=== PATIENT | male | born 1975 | race Caucasian/White ===

== ENCOUNTER 2017-05-15 09:19 | Emergency (ER) | payer MEDICAID ==
[~2017-05-15] VITALS: Ht 167.6 cm; Wt 65.8 kg
[~2017-05-15 09:19] MED LIST: MIRT30TA OR; RISPERIDOL; SERT-138 PO
[2017-05-15 09:36] VITALS: BP 130/72
[2017-05-15] MEDS ORDERED: OLANZapine 5 MG TAB PO ONE (10:15)
== END 2017-05-15 12:31 | disposition left against medical advice (07) ==
LOC: EDUNIT# 09:19 → EDBD 09:19 → ER 09:19
DX: R45.851 Suicidal ideations (principal); F41.9 Anxiety disorder, unspecified; F31.9 Bipolar disorder, unspecified; F10.120 Alcohol abuse with intoxication, uncomplicated; F17.210 Nicotine dependence, cigarettes, uncomplicated; F12.10 Cannabis abuse, uncomplicated; F15.10 Other stimulant abuse, uncomplicated; Z59.0 Homelessness; Z53.29 Procedure and treatment not carried out because of patient's decision for other reasons

== ENCOUNTER 2017-05-23 12:16 | Emergency (ER) | payer MEDICAID ==
[~2017-05-23] VITALS: Ht 165.1 cm; Wt 65.8 kg
[2017-05-23 12:52] LABS: Basophils # (auto) 0 uL; Basophils % (auto) 0.4 % (0.0-2.0); CONDITION Y; Eosinophils # (auto) 0 uL; Eosinophils % (auto) 0.4 % (0.0-7.0); Hemoglobin 13.9 g/dL (13.5-17.5); Lymphocytes # (auto) 2.1 uL; Lymphocytes % (auto) 22.4 % (10.0-50.0); Mean Corpuscular Hemoglobin 32.2 pg (28.0-32.0); Mean Corpuscular Volume 94.8 fL (80.0-100.0); Mean Platelet Volume 7.7 fL (7.4-10.4); Monocytes # (auto) 0.5 uL; Monocytes % (auto) 5.3 % (0.0-12.0); Neutrophils # (auto) 6.7 uL; Neutrophils % (auto) 71.5 % (37.0-80.0); Platelet Count (auto) 328 10^3/uL (140-450); Red Cell Distribution Width 13.5 % (11.6-16.0); White Blood Cell 9.4 10^3/uL (4.4-10.8)
[2017-05-23] MEDS ORDERED: RISP2TAB62 PO (13:06)
[2017-05-23 13:07] LABS: Anion Gap 8 (5-15); BUN/Creatinine Ratio 5.8; Blood Urea Nitrogen 5 mg/dL (7-18); Calcium 8.2 mg/dL (8.5-10.1); Carbon Dioxide 24 mmol/L (21-32); Chloride 110 mmol/L (98-107); GFR African American 127 mL/min; GFR Non-African American 105 mL/min; Glucose 100 mg/dL (74-106); Potassium 3.2 mmol/L (3.5-5.1); Sodium 142 mmol/L (136-145)
[2017-05-23 13:09] LABS: Salicylate 2.3 mg/dL (2.8-20.0)
[2017-05-23 13:13] LABS: Acetaminophen < 2.0 ug/mL (10-30)
[2017-05-23] MEDS ORDERED: POTASSIUM CHL 20 Meq TABLET PO ONE (14:15)
[2017-05-23] MEDS ORDERED: LORazepam 0.5 MG TAB PO ONE (18:15)
[2017-05-24] MEDS ORDERED: risperiDONE 1 MG TAB PO ONE (12:05)
[2017-05-24] MEDS ORDERED: MIRTAZAPINE 30 MG TAB PO ONE (12:05)
[2017-05-24] MEDS ORDERED: risperiDONE 1 MG TAB PO SCH (12:15)
[2017-05-24] MEDS ORDERED: MIRTAZAPINE 30 MG TAB PO SCH (12:15)
[2017-05-24 12:25] VITALS: BP 110/89
== END 2017-05-24 14:10 | disposition home or self-care (01) ==
LOC: EDBD 12:16 → ER 12:19
DX: R45.851 Suicidal ideations (principal); F20.9 Schizophrenia, unspecified; F41.9 Anxiety disorder, unspecified; I10 Essential (primary) hypertension
CPT/HCPCS: 36415; 80048; 80307; 80320; 80329; 85025

== ENCOUNTER 2017-05-28 20:31 | Observation (INO) | payer MEDICAID ==
[~2017-05-28] VITALS: Ht 165.1 cm; Wt 65.8 kg
[~2017-05-28 20:31] MED LIST changes: +RISP2TAB62 PO
[2017-05-28 21:01] LABS: Basophils # (auto) 0.1 uL; Basophils % (auto) 0.4 % (0.0-2.0); CONDITION Y; Eosinophils # (auto) 0.1 uL; Eosinophils % (auto) 0.8 % (0.0-7.0); Hematocrit 42.7 % (41.0-53.0); Hemoglobin 14.5 g/dL (13.5-17.5); Lymphocytes # (auto) 2.7 uL; Lymphocytes % (auto) 24.1 % (10.0-50.0); Mean Corpuscular Hemoglobin 31.6 pg (28.0-32.0); Mean Corpuscular Hgb Conc. 33.9 g/dL (32.0-36.0); Mean Corpuscular Volume 93.2 fL (80.0-100.0); Mean Platelet Volume 7.8 fL (7.4-10.4); Monocytes # (auto) 0.6 uL; Monocytes % (auto) 5.5 % (0.0-12.0); Neutrophils # (auto) 7.9 uL; Neutrophils % (auto) 69.2 % (37.0-80.0); Platelet Count (auto) 353 10^3/uL (140-450); Red Cell Distribution Width 13.3 % (11.6-16.0); White Blood Cell 11.4 10^3/uL (4.4-10.8)
[2017-05-28 21:26] LABS: Acetaminophen < 2.0 ug/mL (10-30); Salicylate 1.7 mg/dL (2.8-20.0)
[2017-05-28 21:32] LABS: Albumin 3.8 g/dL (3.4-5.0); Alkaline Phosphatase 69 U/L (45-117); Anion Gap 8 (5-15); Aspartate Aminotransferase 23 U/L (15-37); BUN/Creatinine Ratio 15.7; Bilirubin, Total 0.3 mg/dL (0.2-1.0); Blood Urea Nitrogen 14 mg/dL (7-18); Calcium 8.6 mg/dL (8.5-10.1); Carbon Dioxide 25 mmol/L (21-32); Chloride 105 mmol/L (98-107); GFR African American 122 mL/min; GFR Non-African American 101 mL/min; Glucose 91 mg/dL (74-106); Potassium 3.7 mmol/L (3.5-5.1); Sodium 138 mmol/L (136-145); Total Protein 7.3 g/dL (6.4-8.2)
[2017-05-28 21:35] LABS: Urine Bilirubin Negative (Negative); Urine Blood Negative /uL (Negative); Urine Glucose Normal (Normal); Urine Ketone Negative (Negative); Urine Nitrite Negative (Negative); Urine RBC <1 /hpf (0 - 3); Urine Urobilinogen Normal (Negative); Urine pH 6.5 (5.0-8.0)
[2017-05-28 21:36] LABS: Urine Color Straw (Yellow)
[2017-05-29] MEDS ORDERED: LORazepam 2MG/ML-1ML VIAL IM ONE (00:45)
[2017-05-29] MEDS ORDERED: LORazepam 0.5 MG TAB PO ONE (22:30)
[2017-05-30] MEDS: LORazepam 0.5 MG TAB PO PRN (10:46)
[2017-05-31] MEDS: LORazepam 0.5 MG TAB PO PRN ×2 (02:05→13:26)
[2017-05-31] MEDS ORDERED: LORazepam 0.5 MG TAB ONE (13:20)
[2017-05-31 19:19] VITALS: BP 114/81
[2017-06-01] MEDS ORDERED: LORazepam 0.5 MG TAB ONE (01:13)
[2017-06-01] MEDS: LORazepam 0.5 MG TAB PO PRN (01:21)
== END 2017-06-01 09:50 | disposition home or self-care (01) | DRG 756 ==
LOC: ER 20:34 → OVERFLOW 22:02 → ER 06-01 08:40
PROVIDERS: ADMIT Emergency Medicine; ATTEND Emergency Medicine
DX: R45.851 Suicidal ideations (principal); F20.9 Schizophrenia, unspecified; I10 Essential (primary) hypertension; E11.9 Type 2 diabetes mellitus without complications; F31.9 Bipolar disorder, unspecified; F41.9 Anxiety disorder, unspecified; F17.210 Nicotine dependence, cigarettes, uncomplicated; Z59.0 Homelessness
CPT/HCPCS: 36415; 80053; 80307; 80320; 80329; 81001; 84484; 85025; 93005; 96372; 99285; G0378; J2060

== ENCOUNTER 2017-09-30 18:37 | Emergency (ER) | payer MEDICAID ==
[~2017-09-30] VITALS: Ht 177.8 cm; Wt 68.0 kg
[2017-09-30 19:18] LABS: Basophils # (auto) 0.1 uL; Basophils % (auto) 0.7 % (0.0-2.0); Eosinophils # (auto) 0.2 uL; Eosinophils % (auto) 1.5 % (0.0-7.0); Hematocrit 41.3 % (41.0-53.0); Hemoglobin 14.3 g/dL (13.5-17.5); Lymphocytes # (auto) 3.2 uL; Lymphocytes % (auto) 32.3 % (10.0-50.0); Mean Corpuscular Hemoglobin 32.2 pg (28.0-32.0); Mean Corpuscular Hgb Conc. 34.5 g/dL (32.0-36.0); Mean Corpuscular Volume 93.2 fL (80.0-100.0); Mean Platelet Volume 7.2 fL (6.9-10.8); Monocytes # (auto) 0.5 uL; Monocytes % (auto) 5.2 % (0.0-12.0); Neutrophils % (auto) 60.3 % (37.0-80.0); Platelet Count (auto) 274 10^3/uL (140-450); Red Cell Distribution Width 12.8 % (11.8-14.3)
[2017-09-30 19:37] LABS: Albumin 3.4 g/dL (3.4-5.0); BUN/Creatinine Ratio 13.5; Calcium 8.2 mg/dL (8.5-10.1); Potassium 4.1 mmol/L (3.5-5.1)
[2017-09-30 19:39] LABS: Acetaminophen < 2.0 ug/mL (10-30); Bilirubin, Total 0.1 mg/dL (0.2-1.0); Salicylate 2.1 mg/dL (2.8-20.0); Total Protein 6.7 g/dL (6.4-8.2)
[2017-10-01 16:41] VITALS: BP 116/80
== END 2017-10-01 16:54 ==
LOC: EDUNIT# 18:37 → ER 18:37 → EDBD 18:37 → ER 10-01 16:54
DX: F41.9 Anxiety disorder, unspecified (principal); G92 Toxic encephalopathy; F10.129 Alcohol abuse with intoxication, unspecified; I10 Essential (primary) hypertension; F32.9 Major depressive disorder, single episode, unspecified; F12.10 Cannabis abuse, uncomplicated; F15.10 Other stimulant abuse, uncomplicated; F20.9 Schizophrenia, unspecified; E11.9 Type 2 diabetes mellitus without complications; F17.210 Nicotine dependence, cigarettes, uncomplicated; Z59.0 Homelessness
CPT/HCPCS: 36415; 80053; 80307; 80320; 80329; 85025

== ENCOUNTER 2017-10-12 10:54 | Emergency (ER) | payer MEDICAID ==
[~2017-10-12] VITALS: Ht 170.2 cm; Wt 68.0 kg
[2017-10-12 13:24] LABS: Basophils # (auto) 0.1 uL; Basophils % (auto) 0.7 % (0.0-2.0); Eosinophils # (auto) 0.1 uL; Eosinophils % (auto) 1.4 % (0.0-7.0); Hematocrit 42.7 % (41.0-53.0); Hemoglobin 14.6 g/dL (13.5-17.5); Lymphocytes # (auto) 1.8 uL; Mean Corpuscular Hemoglobin 32.1 pg (28.0-32.0); Mean Corpuscular Hgb Conc. 34.1 g/dL (32.0-36.0); Mean Corpuscular Volume 94.2 fL (80.0-100.0); Monocytes # (auto) 0.3 uL; Monocytes % (auto) 3.5 % (0.0-12.0); Neutrophils # (auto) 6.3 uL; Neutrophils % (auto) 73.4 % (37.0-80.0); Nucleated Red Blood Cells % 0.1 %; Platelet Count (auto) 305 10^3/uL (140-450); Red Blood Cells 4.53 10^6/uL (4.5-5.90); Red Cell Distribution Width 13.3 % (11.8-14.3); White Blood Cell 8.6 10^3/uL (4.4-10.8)
[2017-10-12 13:30] VITALS: BP 128/77
[2017-10-12 13:45] LABS: Albumin 3.7 g/dL (3.4-5.0); BUN/Creatinine Ratio 11.9; Calcium 8.4 mg/dL (8.5-10.1); Potassium 4.7 mmol/L (3.5-5.1)
[2017-10-12 13:47] LABS: Bilirubin, Total 0.2 mg/dL (0.2-1.0); Total Protein 7.1 g/dL (6.4-8.2)
[2017-10-12 13:49] LABS: Acetaminophen < 2.0 ug/mL (10-30); Salicylate 2.3 mg/dL (2.8-20.0)
== END 2017-10-12 16:28 | disposition home or self-care (01) ==
LOC: ER 10:54 → EDBD 10:54 → ER 16:28
DX: T65.92XA Toxic effect of unspecified substance, intentional self-harm, initial encounter (principal); F41.9 Anxiety disorder, unspecified; F32.9 Major depressive disorder, single episode, unspecified; I10 Essential (primary) hypertension; F20.9 Schizophrenia, unspecified; F12.10 Cannabis abuse, uncomplicated; F17.210 Nicotine dependence, cigarettes, uncomplicated; Z59.0 Homelessness; Y92.89 Other specified places as the place of occurrence of the external cause
CPT/HCPCS: 36415; 71045; 80053; 80329; 85025; 93005

== ENCOUNTER 2018-02-02 07:42 | Emergency (ER) | payer MEDICAID ==
[~2018-02-02] VITALS: Ht 165.1 cm; Wt 63.5 kg
[2018-02-02 07:48] VITALS: BP 137/88
[2018-02-02 07:55] LABS: Urine WBC None Seen /hpf (0 - 3)
[2018-02-02] MEDS ORDERED: SODIUM CHLORIDE 0.9% 1,000 ML IV ONE ×2 (08:04)
[2018-02-02 08:13] LABS: Basophils # (auto) 0.1 uL; Basophils % (auto) 0.8 % (0.0-2.0); Eosinophils # (auto) 0.1 uL; Eosinophils % (auto) 1.3 % (0.0-7.0); Hematocrit 46.7 % (41.0-53.0); Hemoglobin 15.9 g/dL (13.5-17.5); Lymphocytes # (auto) 1.6 uL; Lymphocytes % (auto) 16.6 % (10.0-50.0); Mean Corpuscular Hemoglobin 31.1 pg (28.0-32.0); Mean Corpuscular Hgb Conc. 34.2 g/dL (32.0-36.0); Mean Corpuscular Volume 91.2 fL (80.0-100.0); Monocytes # (auto) 0.5 uL; Monocytes % (auto) 4.8 % (0.0-12.0); Neutrophils # (auto) 7.5 uL; Neutrophils % (auto) 76.5 % (37.0-80.0); Nucleated Red Blood Cells % 0.1 %; Platelet Count (auto) 351 10^3/uL (140-450); Red Blood Cells 5.12 10^6/uL (4.5-5.90); Red Cell Distribution Width 13.2 % (11.8-14.3); White Blood Cell 9.9 10^3/uL (4.4-10.8)
[2018-02-02] MEDS ORDERED: LORazepam 2MG/ML-1ML VIAL IV ONE (08:15)
[2018-02-02] MEDS ORDERED: ALUM & MAG HYDROX-SIMETH LIQ(MAALOX) 30 ML PO ONE (08:15)
[2018-02-02] MEDS ORDERED: LIDOCAINE VISCOUS 2% 15ML UD PO ONE (08:15)
[2018-02-02] MEDS ORDERED: DONNATAL 5ml ORAL Elix (BELLADONNA ALK-PHENOBARB) PO ONE (08:15)
[2018-02-02 08:19] LABS: Urine Amorphous Crystal FEW /hpf (None Seen); Urine Bacteria FEW /hpf (None Seen); Urine Blood Negative /uL (Negative); Urine Mucus FEW (None Seen)
[2018-02-02 08:23] LABS: BUN/Creatinine Ratio 8.9; Calcium 9.1 mg/dL (8.5-10.1); Potassium 3.8 mmol/L (3.5-5.1)
[2018-02-02 08:25] LABS: Bilirubin, Total 0.4 mg/dL (0.2-1.0); Total Protein 7.8 g/dL (6.4-8.2)
== END 2018-02-02 10:37 | disposition home or self-care (01) ==
LOC: EDBD 07:42 → ER 07:42
DX: K29.70 Gastritis, unspecified, without bleeding (principal); I10 Essential (primary) hypertension; E11.9 Type 2 diabetes mellitus without complications; R11.2 Nausea with vomiting, unspecified; F17.210 Nicotine dependence, cigarettes, uncomplicated; Z87.11 Personal history of peptic ulcer disease; Z59.0 Homelessness
CPT/HCPCS: 36415; 74176; 80053; 81001; 85025; 96361; 96374; 99285; J2060; J7030

== ENCOUNTER 2018-06-10 10:54 | Emergency (ER) | payer MEDICAID ==
[~2018-06-10] VITALS: Ht 167.6 cm; Wt 69.4 kg
[2018-06-10 11:23] LABS: Basophils # (auto) 0 uL; Basophils % (auto) 0.5 % (0.0-2.0); Eosinophils # (auto) 0.1 uL; Eosinophils % (auto) 0.7 % (0.0-7.0); Hemoglobin 16.2 g/dL (13.5-17.5); Lymphocytes # (auto) 2.1 uL; Lymphocytes % (auto) 22.6 % (10.0-50.0); Mean Corpuscular Hemoglobin 31.7 pg (28.0-32.0); Mean Corpuscular Hgb Conc. 34.6 g/dL (32.0-36.0); Mean Corpuscular Volume 91.8 fL (80.0-100.0); Monocytes # (auto) 0.4 uL; Monocytes % (auto) 4.5 % (0.0-12.0); Neutrophils # (auto) 6.5 uL; Neutrophils % (auto) 71.7 % (37.0-80.0); Platelet Count (auto) 321 10^3/uL (140-450); Red Blood Cells 5.12 10^6/uL (4.5-5.90); Red Cell Distribution Width 13.1 % (11.8-14.3); White Blood Cell 9.1 10^3/uL (4.4-10.8)
[2018-06-10 11:37] LABS: Albumin 4.1 g/dL (3.4-5.0); BUN/Creatinine Ratio 6.4; Bilirubin, Total 0.4 mg/dL (0.2-1.0); Calcium 8.4 mg/dL (8.5-10.1); Potassium 3.6 mmol/L (3.5-5.1); Total Protein 7.8 g/dL (6.4-8.2)
[2018-06-10 11:49] LABS: Acetaminophen < 2.0 ug/mL (10-30)
[2018-06-10 12:11] LABS: Urine Bacteria FEW /hpf (None Seen); Urine Blood Negative /uL (Negative); Urine Mucus FEW (None Seen); Urine Specific Gravity 1.031 (1.001-1.035); Urine WBC 1 /hpf (0 - 3)
[2018-06-10 12:13] LABS: Amphetamine Screen, Urine POSITIVE (NEGATIVE); Barbiturate Scree,Urine NEGATIVE (NEGATIVE); Benzodiazephine Screen, Urine NEGATIVE (NEGATIVE); Cannabinoid Screen, Urine POSITIVE (NEGATIVE); Cocaine Screen, Urine NEGATIVE (NEGATIVE); Opiate Scree,Urine NEGATIVE (NEGATIVE); Phencyclidine Screen, Urine NEGATIVE (NEGATIVE)
[2018-06-10] MEDS ORDERED: LORazepam 0.5 MG TAB PO ONE (12:30)
[2018-06-10] MEDS ORDERED: OLAN5TAB30 PO (19:04)
[2018-06-10] MEDS ORDERED: RISP4TAB53 PO (19:04)
[2018-06-10] MEDS ORDERED: HYDR50TA69 PO (19:04)
[2018-06-10] MEDS ORDERED: MIRT30TA OR (19:04)
[2018-06-12] MEDS ORDERED: OLANZapine 5 MG TAB PO PRN (09:30)
[2018-06-12] MEDS ORDERED: hydrOXYzine 25 MG TAB or CAP PO PRN (09:30)
[2018-06-12] MEDS ORDERED: FLUoxetine HCL 20 MG CAP PO ONE (15:30)
[2018-06-12] MEDS ORDERED: MIRTAZAPINE 30 MG TAB PO SCH (22:00)
[2018-06-12] MEDS ORDERED: PRAZOSIN HCL 1 MG CAP PO SCH (22:00)
[2018-06-12] MEDS ORDERED: clonazePAM 0.5 MG TAB PO SCH (22:00)
[2018-06-12] MEDS ORDERED: risperiDONE 1 MG TAB PO SCH (22:00)
[2018-06-13] MEDS ORDERED: CHOLECALCIFEROL (VITD3) 1,000 UNIT TAB PO SCH (10:00)
[2018-06-13 19:16] VITALS: BP 129/92
== END 2018-06-13 19:35 | disposition short-term general hospital (02) ==
LOC: ER 10:54 → EDBD 10:54 → ER 06-13 19:35
DX: R45.851 Suicidal ideations (principal); F32.9 Major depressive disorder, single episode, unspecified; F41.9 Anxiety disorder, unspecified; E11.9 Type 2 diabetes mellitus without complications; I10 Essential (primary) hypertension; F17.210 Nicotine dependence, cigarettes, uncomplicated; F12.10 Cannabis abuse, uncomplicated; Z59.0 Homelessness
CPT/HCPCS: 36415; 71045; 80053; 80307; 80320; 80329; 81001; 85025

== ENCOUNTER 2018-07-26 15:55 | Emergency (ER) | payer MEDICAID ==
[~2018-07-26] VITALS: Ht 167.6 cm; Wt 72.6 kg
[~2018-07-26 15:55] MED LIST changes: +HYDR50TA69 PO; +OLAN5TAB30 PO; +RISP4TAB53 PO
[2018-07-26 16:24] LABS: Urine WBC None Seen /hpf (0 - 3)
[2018-07-26 16:40] LABS: Basophils # (auto) 0.1 uL; Basophils % (auto) 0.9 % (0.0-2.0); Eosinophils # (auto) 0.1 uL; Eosinophils % (auto) 0.6 % (0.0-7.0); Hematocrit 45.6 % (41.0-53.0); Lymphocytes # (auto) 1.9 uL; Lymphocytes % (auto) 21.8 % (10.0-50.0); Mean Corpuscular Hemoglobin 32.1 pg (28.0-32.0); Mean Corpuscular Hgb Conc. 35.2 g/dL (32.0-36.0); Mean Corpuscular Volume 91.4 fL (80.0-100.0); Monocytes # (auto) 0.5 uL; Monocytes % (auto) 5.7 % (0.0-12.0); Neutrophils # (auto) 6.3 uL; Nucleated Red Blood Cells % 0.1 %; Platelet Count (auto) 271 10^3/uL (140-450); Red Blood Cells 4.99 10^6/uL (4.5-5.90); Red Cell Distribution Width 13.5 % (11.8-14.3); White Blood Cell 8.9 10^3/uL (4.4-10.8)
[2018-07-26 16:48] LABS: Urine Bacteria NONE SEEN /hpf (None Seen); Urine Blood Negative /uL (Negative); Urine Specific Gravity 1.002 (1.001-1.035)
[2018-07-26 16:59] LABS: Anion Gap 10 (5-15); BUN/Creatinine Ratio 4.5; Blood Alcohol < 3.0 mg/dL (0-5); Blood Urea Nitrogen 6 mg/dL (7-18); Carbon Dioxide 26 mmol/L (21-32); Chloride 105 mmol/L (98-107); GFR African American 76 mL/min; GFR Non-African American 63 mL/min; Glucose 103 mg/dL (74-106); Potassium 3.6 mmol/L (3.5-5.1); Sodium 141 mmol/L (136-145)
[2018-07-26 17:02] LABS: Alanine Aminotransferase 23 U/L (16-61); Alkaline Phosphatase 85 U/L (45-117); Aspartate Aminotransferase 16 U/L (15-37); Bilirubin, Total 0.3 mg/dL (0.2-1.0); Total Protein 7.9 g/dL (6.4-8.2)
[2018-07-26 17:06] LABS: Alcohol, Urine < 3.0 mg/dL (0-5); Amphetamine Screen, Urine NEGATIVE (NEGATIVE); Barbiturate Scree,Urine NEGATIVE (NEGATIVE); Benzodiazephine Screen, Urine NEGATIVE (NEGATIVE); Cannabinoid Screen, Urine POSITIVE (NEGATIVE); Cocaine Screen, Urine NEGATIVE (NEGATIVE); Opiate Scree,Urine NEGATIVE (NEGATIVE); Phencyclidine Screen, Urine NEGATIVE (NEGATIVE)
[2018-07-26 17:09] LABS: Acetaminophen < 2.0 ug/mL (10-30)
[2018-07-26] MEDS ORDERED: LORazepam 0.5 MG TAB PO ONE (17:30)
[2018-07-26] MEDS ORDERED: FAMOTIDINE 20 MG TAB PO ONE (22:30)
[2018-07-27] MEDS: OLANZapine 5 MG TAB PO SCH (23:06)
[2018-07-27] MEDS: MIRTAZAPINE 30 MG TAB PO SCH (23:06)
[2018-07-28] MEDS: OLANZapine 5 MG TAB PO SCH ×2 (06:40→17:00)
[2018-07-28] MEDS ORDERED: LORazepam 0.5 MG TAB PO ONE (18:15)
[2018-07-28] MEDS ORDERED: CALCIUM CARB 500 MG CHEW TAB PO ONE (22:00)
[2018-07-28] MEDS ORDERED: HCTZ 25 MG TAB ONE (22:15)
[2018-07-29] MEDS: MIRTAZAPINE 30 MG TAB PO SCH ×2 (05:06→22:30)
[2018-07-29] MEDS: OLANZapine 5 MG TAB PO SCH ×4 (05:06→22:30)
[2018-07-29] MEDS ORDERED: LORazepam 0.5 MG TAB PO ONE (13:00)
[2018-07-30 00:34] VITALS: BP 116/69
== END 2018-07-30 01:18 | disposition short-term general hospital (02) ==
LOC: ER 15:55 → EDBD 15:55 → ER 07-30 01:18
DX: R45.851 Suicidal ideations (principal); F17.210 Nicotine dependence, cigarettes, uncomplicated; F12.10 Cannabis abuse, uncomplicated; F15.10 Other stimulant abuse, uncomplicated; E11.9 Type 2 diabetes mellitus without complications; I10 Essential (primary) hypertension
CPT/HCPCS: 36415; 80053; 80307; 80320; 80329; 81001; 85025

== ENCOUNTER 2018-08-14 21:48 | Emergency (ER) | payer MEDICAID ==
[~2018-08-14] VITALS: Ht 175.3 cm; Wt 72.6 kg
[2018-08-14] MEDS ORDERED: ONDANSETRON HCL 4 MG/2 ML VIAL IV ONE (22:30)
[2018-08-14] MEDS ORDERED: ONDANSETRON HCL 4 MG/2 ML VIAL ONE (22:31)
[2018-08-14 22:46] LABS: Basophils # (auto) 0.1 uL; Basophils % (auto) 0.7 % (0.0-2.0); Eosinophils # (auto) 0.1 uL; Hemoglobin 16.5 g/dL (13.5-17.5); Lymphocytes # (auto) 2.6 uL; Mean Corpuscular Hemoglobin 31.4 pg (28.0-32.0); Mean Corpuscular Hgb Conc. 34.3 g/dL (32.0-36.0); Mean Corpuscular Volume 91.4 fL (80.0-100.0); Monocytes # (auto) 0.6 uL; Monocytes % (auto) 5.7 % (0.0-12.0); Neutrophils # (auto) 6.6 uL; Neutrophils % (auto) 66.6 % (37.0-80.0); Nucleated Red Blood Cells % 0.1 %; Platelet Count (auto) 332 10^3/uL (140-450); Red Blood Cells 5.25 10^6/uL (4.5-5.90); Red Cell Distribution Width 13.5 % (11.8-14.3); White Blood Cell 9.9 10^3/uL (4.4-10.8)
[2018-08-14 23:01] LABS: INR 0.89 (0.9-1.15); Prothrombin Time 9.6 sec (9.27-12.13)
[2018-08-14 23:05] LABS: BUN/Creatinine Ratio 6.6; Calcium 8.6 mg/dL (8.5-10.1); Magnesium 2.4 mg/dL (1.6-2.6); Potassium 3.4 mmol/L (3.5-5.1)
[2018-08-14 23:08] LABS: Bilirubin, Total 0.3 mg/dL (0.2-1.0); Total Protein 7.6 g/dL (6.4-8.2)
[2018-08-14] MEDS ORDERED: MVI in SODIUM CHLORIDE 0.9% 1,010 ML ONE (23:18)
[2018-08-14] MEDS ORDERED: THIAMINE 100mg/ml INJ (200mg/2ml VIAL) ONE (23:18)
[2018-08-14] MEDS ORDERED: THIAMINE INJ 100 MG, MULTIPLE VITAMIN 10 ML, FOLIC ACID 1 MG, MAGNESIUM SULF SDV 50% 8 ... IV SCH ×5 (23:30)
[2018-08-15] MEDS ORDERED: PROMETHAZINE HCL 25 MG/ML 1ML ONE (00:24)
[2018-08-15] MEDS ORDERED: PROMETHAZINE HCL 25 MG/ML 1ML IV ONE (00:30)
[2018-08-15 02:17] VITALS: BP 137/89
== END 2018-08-15 02:42 | disposition home or self-care (01) ==
LOC: EDBD 21:48 → ER 21:52
DX: K29.00 Acute gastritis without bleeding (principal); F10.129 Alcohol abuse with intoxication, unspecified; F15.90 Other stimulant use, unspecified, uncomplicated; F17.210 Nicotine dependence, cigarettes, uncomplicated; E11.9 Type 2 diabetes mellitus without complications; I10 Essential (primary) hypertension; Z79.899 Other long term (current) drug therapy
CPT/HCPCS: 36415; 71045; 80053; 80320; 83735; 85025; 85610; 85730; 96365; 96366; 96375; 99285; J2405; J2550; J3411; J3475; J7042

== ENCOUNTER 2018-08-19 09:08 | Emergency (ER) | payer MEDICAID ==
[~2018-08-19] VITALS: Ht 165.1 cm; Wt 68.0 kg
[2018-08-19] MEDS ORDERED: SODIUM CHLORIDE 0.9% 1,000 ML IV ONE (09:52)
[2018-08-19] MEDS ORDERED: LORazepam 2MG/ML-1ML VIAL IV ONE (10:00)
[2018-08-19 10:09] LABS: Urine Bacteria NONE SEEN /hpf (None Seen); Urine Blood Negative /uL (Negative); Urine Specific Gravity 1.002 (1.001-1.035); Urine WBC <1 /hpf (0 - 3)
[2018-08-19 10:18] LABS: Basophils # (auto) 0.1 uL; Basophils % (auto) 0.6 % (0.0-2.0); Eosinophils # (auto) 0 uL; Eosinophils % (auto) 0.5 % (0.0-7.0); Hematocrit 47.2 % (41.0-53.0); Hemoglobin 16.3 g/dL (13.5-17.5); Lymphocytes # (auto) 1.5 uL; Lymphocytes % (auto) 15.7 % (10.0-50.0); Mean Corpuscular Hemoglobin 31.9 pg (28.0-32.0); Mean Corpuscular Hgb Conc. 34.4 g/dL (32.0-36.0); Mean Corpuscular Volume 92.6 fL (80.0-100.0); Monocytes # (auto) 0.6 uL; Monocytes % (auto) 6.8 % (0.0-12.0); Neutrophils # (auto) 7.2 uL; Neutrophils % (auto) 76.4 % (37.0-80.0); Platelet Count (auto) 308 10^3/uL (140-450); Red Cell Distribution Width 13.6 % (11.8-14.3); White Blood Cell 9.4 10^3/uL (4.4-10.8)
[2018-08-19 10:33] LABS: Alanine Aminotransferase 18 U/L (16-61); Albumin 3.6 g/dL (3.4-5.0); Amylase 51 U/L (25-115); Anion Gap 11 (5-15); Aspartate Aminotransferase 13 U/L (15-37); BUN/Creatinine Ratio 4.4; Blood Urea Nitrogen 6 mg/dL (7-18); Calcium 8.2 mg/dL (8.5-10.1); Carbon Dioxide 20 mmol/L (21-32); Chloride 108 mmol/L (98-107); GFR African American 75 mL/min; GFR Non-African American 62 mL/min; Glucose 119 mg/dL (74-106); INR 0.93 (0.9-1.15); Lipase 165 U/L (73-393); Sodium 139 mmol/L (136-145)
[2018-08-19 10:39] LABS: Alkaline Phosphatase 68 U/L (45-117); Bilirubin, Total 0.4 mg/dL (0.2-1.0); Total Protein 7.2 g/dL (6.4-8.2)
[2018-08-19 11:30] VITALS: BP 126/88
[2018-08-19] MEDS ORDERED: POTASSIUM EFFERVESENT TAB 25 MEQ PO ONE (11:30)
[2018-08-19 12:42] LABS: Lactic Acid w/Reflex 3.1 mmol/L (0.4-2.0)
== END 2018-08-19 12:17 | disposition home or self-care (01) ==
LOC: ER 09:08
DX: K92.0 Hematemesis (principal); F41.9 Anxiety disorder, unspecified; R10.13 Epigastric pain; F32.9 Major depressive disorder, single episode, unspecified; E11.9 Type 2 diabetes mellitus without complications; I10 Essential (primary) hypertension; F20.9 Schizophrenia, unspecified; F17.210 Nicotine dependence, cigarettes, uncomplicated; F12.10 Cannabis abuse, uncomplicated; F10.10 Alcohol abuse, uncomplicated; Z87.11 Personal history of peptic ulcer disease
CPT/HCPCS: 36415; 74176; 80053; 81001; 82150; 83605; 83690; 84484; 85025; 85610; 85730; 87040; 96361; 96374; 99285; J2060; J7030

== ENCOUNTER 2018-12-01 22:09 | Emergency (ER) | payer MEDICAID ==
[~2018-12-01] VITALS: Ht 165.1 cm; Wt 64.0 kg
[2018-12-02 01:04] LABS: Basophils # (auto) 0.1 uL; Basophils % (auto) 0.9 % (0.0-2.0); Eosinophils # (auto) 0.2 uL; Eosinophils % (auto) 1.6 % (0.0-7.0); Hematocrit 46.1 % (41.0-53.0); Hemoglobin 16.2 g/dL (13.5-17.5); Lymphocytes # (auto) 3.2 uL; Lymphocytes % (auto) 32.1 % (10.0-50.0); Mean Corpuscular Hemoglobin 32.4 pg (28.0-32.0); Mean Corpuscular Hgb Conc. 35.2 g/dL (32.0-36.0); Mean Corpuscular Volume 92.1 fL (80.0-100.0); Monocytes # (auto) 0.5 uL; Neutrophils # (auto) 6.1 uL; Neutrophils % (auto) 60.4 % (37.0-80.0); Platelet Count (auto) 286 10^3/uL (140-450); Red Blood Cells 5.01 10^6/uL (4.5-5.90); Red Cell Distribution Width 13.6 % (11.8-14.3); White Blood Cell 10.1 10^3/uL (4.4-10.8)
[2018-12-02 01:24] LABS: Albumin 3.7 g/dL (3.4-5.0); BUN/Creatinine Ratio 9.3; Calcium 8.4 mg/dL (8.5-10.1); Potassium 4.2 mmol/L (3.5-5.1)
[2018-12-02 01:26] LABS: Bilirubin, Total 0.3 mg/dL (0.2-1.0); Total Protein 7.2 g/dL (6.4-8.2)
[2018-12-02 08:21] LABS: Urine Bacteria NONE SEEN /hpf (None Seen); Urine Blood Negative /uL (Negative); Urine Specific Gravity 1.021 (1.001-1.035); Urine WBC 1 /hpf (0 - 3)
[2018-12-02 08:30] LABS: Amphetamine Screen, Urine NEGATIVE (NEGATIVE); Barbiturate Scree,Urine NEGATIVE (NEGATIVE); Benzodiazephine Screen, Urine NEGATIVE (NEGATIVE); Cannabinoid Screen, Urine POSITIVE (NEGATIVE); Cocaine Screen, Urine NEGATIVE (NEGATIVE); Opiate Scree,Urine NEGATIVE (NEGATIVE); Phencyclidine Screen, Urine NEGATIVE (NEGATIVE)
[2018-12-02 10:00] VITALS: BP 93/63
== END 2018-12-02 10:27 | disposition home or self-care (01) ==
LOC: EDBD 22:09 → ER 22:18
DX: R55 Syncope and collapse (principal); F41.9 Anxiety disorder, unspecified; F32.9 Major depressive disorder, single episode, unspecified; I10 Essential (primary) hypertension; F17.210 Nicotine dependence, cigarettes, uncomplicated; F12.90 Cannabis use, unspecified, uncomplicated; Z79.899 Other long term (current) drug therapy
CPT/HCPCS: 36415; 70450; 80053; 80307; 80320; 81001; 85025

== ENCOUNTER 2019-01-06 11:28 | Emergency (ER) | payer MEDICAID ==
[~2019-01-06] VITALS: Ht 165.1 cm; Wt 69.4 kg
[2019-01-06 12:01] LABS: Basophils # (auto) 0.1 uL; Basophils % (auto) 0.9 % (0.0-2.0); Eosinophils # (auto) 0.1 uL; Eosinophils % (auto) 1.2 % (0.0-7.0); Hematocrit 46.4 % (41.0-53.0); Hemoglobin 15.8 g/dL (13.5-17.5); Lymphocytes # (auto) 2.1 uL; Lymphocytes % (auto) 27.1 % (10.0-50.0); Mean Corpuscular Hemoglobin 31.7 pg (28.0-32.0); Mean Corpuscular Volume 93.4 fL (80.0-100.0); Monocytes # (auto) 0.4 uL; Monocytes % (auto) 5.4 % (0.0-12.0); Neutrophils % (auto) 65.4 % (37.0-80.0); Nucleated Red Blood Cells % 0.1 %; Platelet Count (auto) 299 10^3/uL (140-450); Red Blood Cells 4.96 10^6/uL (4.5-5.90); Red Cell Distribution Width 13.4 % (11.8-14.3); White Blood Cell 7.7 10^3/uL (4.4-10.8)
[2019-01-06 12:15] LABS: Albumin 3.8 g/dL (3.4-5.0); BUN/Creatinine Ratio 9.9; Calcium 8.5 mg/dL (8.5-10.1); Potassium 3.9 mmol/L (3.5-5.1)
[2019-01-06] MEDS ORDERED: PANTOPRAZOLE 40 MG/10 ML VIAL IV ONE (12:15)
[2019-01-06 12:18] LABS: Bilirubin, Total 0.2 mg/dL (0.2-1.0); Total Protein 7.3 g/dL (6.4-8.2)
[2019-01-06 12:28] LABS: Urine Bacteria NONE SEEN /hpf (None Seen); Urine Blood Negative /uL (Negative); Urine Specific Gravity 1.014 (1.001-1.035); Urine WBC <1 /hpf (0 - 3)
[2019-01-06] MEDS ORDERED: HYDROcodone-ACET 10/325MG TAB PO ONE (13:00)
[2019-01-06] MEDS ORDERED: PANTOPRAZOLE 40 MG TAB PO ONE (13:00)
[2019-01-06 13:23] VITALS: BP 113/77
== END 2019-01-06 13:32 | disposition home or self-care (01) ==
LOC: ER 11:28
DX: T14.8XXA Other injury of unspecified body region, initial encounter (principal); R10.13 Epigastric pain; R11.2 Nausea with vomiting, unspecified; I10 Essential (primary) hypertension; F17.210 Nicotine dependence, cigarettes, uncomplicated; Z87.11 Personal history of peptic ulcer disease; X58.XXXA Exposure to other specified factors, initial encounter; Y93.89 Activity, other specified; Y92.89 Other specified places as the place of occurrence of the external cause; Y99.8 Other external cause status
CPT/HCPCS: 36415; 80053; 81001; 82150; 83690; 85025

== ENCOUNTER 2019-07-03 16:30 | Emergency (ER) | payer MEDICAID ==
[~2019-07-03] VITALS: Ht 172.7 cm; Wt 72.6 kg
[~2019-07-03 16:30] MED LIST changes: -SERT-138 PO; +SERT50TA PO
[2019-07-03 16:35] VITALS: BP 122/81
[2019-07-03] MEDS ORDERED: SODIUM CHLORIDE 0.9% 1,000 ML IVB ONE (16:47)
[2019-07-03] MEDS ORDERED: LORazepam 2MG/ML-1ML VIAL IV ONE (17:00)
[2019-07-03] MEDS ORDERED: ONDANSETRON HCL 4 MG/2 ML VIAL IV ONE (17:00)
[2019-07-03 17:18] LABS: Basophils # (auto) 0.1 uL; Basophils % (auto) 0.9 % (0.0-2.0); Eosinophils # (auto) 0.2 uL; Eosinophils % (auto) 1.7 % (0.0-7.0); Hemoglobin 16.2 g/dL (13.5-17.5); Lymphocytes % (auto) 37.9 % (10.0-50.0); Mean Corpuscular Hgb Conc. 33.7 g/dL (32.0-36.0); Monocytes # (auto) 0.7 uL; Monocytes % (auto) 5.4 % (0.0-12.0); Neutrophils # (auto) 7.1 uL; Neutrophils % (auto) 54.1 % (37.0-80.0); Nucleated Red Blood Cells % 0.1 %; Platelet Count (auto) 329 10^3/uL (140-450); Red Blood Cells 5.21 10^6/uL (4.5-5.90); Red Cell Distribution Width 13.8 % (11.8-14.3); White Blood Cell 13.1 10^3/uL (4.4-10.8)
[2019-07-03 17:23] LABS: Albumin 4.4 g/dL (3.4-5.0); Calcium 8.6 mg/dL (8.5-10.1); Potassium 3.8 mmol/L (3.5-5.1)
[2019-07-03 17:38] LABS: Bilirubin, Total 0.3 mg/dL (0.2-1.0); Total Protein 7.9 g/dL (6.4-8.2)
== END 2019-07-03 19:02 | disposition left against medical advice (07) ==
LOC: EDBD 16:30 → ER 16:30
DX: F10.129 Alcohol abuse with intoxication, unspecified (principal); I10 Essential (primary) hypertension; F17.210 Nicotine dependence, cigarettes, uncomplicated; F12.10 Cannabis abuse, uncomplicated; R41.82 Altered mental status, unspecified; Z87.11 Personal history of peptic ulcer disease; Y90.8 Blood alcohol level of 240 mg/100 ml or more
CPT/HCPCS: 36415; 80053; 80320; 85025; 94761; 96361; 96374; 96375; 99283; J2060; J2405; J7030

== ENCOUNTER 2019-07-04 11:12 | Emergency (ER) | payer MEDICAID ==
[~2019-07-04] VITALS: Ht 165.1 cm; Wt 78.0 kg
[2019-07-04] MEDS ORDERED: SODIUM CHLORIDE 0.9% 1,000 ML IV ONE (11:25)
[2019-07-04] MEDS ORDERED: FAMOTIDINE (10MG/ML) 2ML VL IV ONE (11:30)
[2019-07-04] MEDS ORDERED: PROCHLORPERAZINE EDISYLATE 5 MG/ML 2ML VIAL IV ONE (11:30)
[2019-07-04 21:59] VITALS: BP 134/80
== END 2019-07-04 22:34 | disposition home or self-care (01) ==
LOC: EDBD 11:12 → ER 11:12
DX: F10.239 Alcohol dependence with withdrawal, unspecified (principal); I10 Essential (primary) hypertension; F17.210 Nicotine dependence, cigarettes, uncomplicated; F12.90 Cannabis use, unspecified, uncomplicated; Z79.899 Other long term (current) drug therapy
CPT/HCPCS: 36415; 80320; 96361; 96374; 96375; 99283; J0780; J3490; J7030

== ENCOUNTER 2019-07-13 10:54 | Emergency (ER) | payer MEDICAID ==
[~2019-07-13] VITALS: Ht 165.1 cm; Wt 78.0 kg
[2019-07-13] MEDS ORDERED: LORazepam 2MG/ML-1ML VIAL IV ONE (11:45)
[2019-07-13] MEDS ORDERED: SODIUM CHLORIDE 0.9% 1,000 ML IV ONE ×2 (12:10→12:15)
[2019-07-13] MEDS ORDERED: FOLIC ACID 1 MG, MULTIPLE VITAMIN 10 ML, MAGNESIUM SULF SDV 50% 8 MEQ, THIAMINE INJ 100... INJ ONE ×5 (12:15)
[2019-07-13 12:31] LABS: Urine Bacteria NONE SEEN /hpf (None Seen); Urine Blood Negative /uL (Negative); Urine Specific Gravity 1.017 (1.001-1.035); Urine WBC 1 /hpf (0 - 3)
[2019-07-13 12:54] LABS: Basophils # (auto) 0.1 uL; Basophils % (auto) 0.9 % (0.0-2.0); Eosinophils # (auto) 0.2 uL; Eosinophils % (auto) 2.1 % (0.0-7.0); Hematocrit 44.7 % (41.0-53.0); Hemoglobin 15.9 g/dL (13.5-17.5); Lymphocytes % (auto) 37.9 % (10.0-50.0); Mean Corpuscular Hemoglobin 31.9 pg (28.0-32.0); Mean Corpuscular Hgb Conc. 35.6 g/dL (32.0-36.0); Mean Corpuscular Volume 89.6 fL (80.0-100.0); Monocytes # (auto) 0.6 uL; Monocytes % (auto) 7.9 % (0.0-12.0); Neutrophils % (auto) 51.2 % (37.0-80.0); Nucleated Red Blood Cells % 0.1 %; Platelet Count (auto) 300 10^3/uL (140-450); Red Blood Cells 4.98 10^6/uL (4.5-5.90); Red Cell Distribution Width 13.5 % (11.8-14.3); White Blood Cell 7.9 10^3/uL (4.4-10.8)
[2019-07-13 12:55] LABS: Alcohol, Urine < 3.0 mg/dL (0-5); Amphetamine Screen, Urine NEGATIVE (NEGATIVE); Barbiturate Scree,Urine NEGATIVE (NEGATIVE); Benzodiazephine Screen, Urine NEGATIVE (NEGATIVE); Cannabinoid Screen, Urine POSITIVE (NEGATIVE); Cocaine Screen, Urine NEGATIVE (NEGATIVE); Opiate Scree,Urine NEGATIVE (NEGATIVE); Phencyclidine Screen, Urine NEGATIVE (NEGATIVE)
[2019-07-13 13:08] LABS: Albumin 3.8 g/dL (3.4-5.0); Calcium 8.5 mg/dL (8.5-10.1); Magnesium 2.4 mg/dL (1.6-2.6); Potassium 3.9 mmol/L (3.5-5.1)
[2019-07-13 13:11] LABS: BUN/Creatinine Ratio 10.9
[2019-07-13 13:13] LABS: Bilirubin, Total 0.4 mg/dL (0.2-1.0); Total Protein 7.2 g/dL (6.4-8.2)
[2019-07-13] MEDS ORDERED: ALUM & MAG HYDROX-SIMETH LIQ(MAALOX) 30 ML PO ONE (17:30)
[2019-07-13] MEDS ORDERED: LIDOCAINE VISCOUS 2% 15ML UD PO ONE (17:30)
[2019-07-13] MEDS ORDERED: DONNATAL 5ml ORAL Elix (BELLADONNA ALK-PHENOBARB) PO ONE (17:30)
[2019-07-13 17:38] VITALS: BP 118/87
[2019-07-14] MEDS ORDERED: FOLIC ACID 1 MG, MULTIPLE VITAMIN 10 ML, MAGNESIUM SULF SDV 50% 8 MEQ, THIAMINE INJ 100... INJ SCH ×5 (12:00)
== END 2019-07-13 17:46 | disposition home or self-care (01) ==
LOC: ER 10:54
DX: R06.6 Hiccough (principal); F31.9 Bipolar disorder, unspecified; F20.9 Schizophrenia, unspecified; F17.210 Nicotine dependence, cigarettes, uncomplicated; F12.10 Cannabis abuse, uncomplicated; K21.9 Gastro-esophageal reflux disease without esophagitis; E78.5 Hyperlipidemia, unspecified; I10 Essential (primary) hypertension; Z87.11 Personal history of peptic ulcer disease
CPT/HCPCS: 36415; 80053; 80307; 81001; 83735; 85025; 96365; 96366; 96375; 99284; J2060; J3411; J3475; J7030

== ENCOUNTER 2019-09-11 17:20 | Emergency (ER) | payer MEDICAID ==
[2019-09-11] MEDS ORDERED: SODIUM CHLORIDE 0.9% 1,000 ML IVB ONE (17:48)
[2019-09-11] MEDS ORDERED: PROMETHAZINE HCL 25 MG/ML 1ML IV PRN (18:00)
[2019-09-11 18:26] LABS: Urine Bacteria NONE SEEN /hpf (None Seen); Urine Blood Negative /uL (Negative); Urine Mucus FEW (None Seen); Urine Specific Gravity 1.035 (1.001-1.035); Urine WBC 3 /hpf (0 - 3)
[2019-09-11 18:36] LABS: Eosinophils # (auto) 0 uL; Lymphocytes # (auto) 1.7 uL; Lymphocytes % (auto) 10.5 % (10.0-50.0); Monocytes % (auto) 5.9 % (0.0-12.0)
[2019-09-11 18:36] LABS: Amphetamine Screen, Urine POSITIVE (NEGATIVE); Barbiturate Scree,Urine NEGATIVE (NEGATIVE); Benzodiazephine Screen, Urine NEGATIVE (NEGATIVE); Cannabinoid Screen, Urine POSITIVE (NEGATIVE); Cocaine Screen, Urine NEGATIVE (NEGATIVE); Opiate Scree,Urine NEGATIVE (NEGATIVE); Phencyclidine Screen, Urine NEGATIVE (NEGATIVE)
[2019-09-11 18:37] LABS: Basophils # (auto) 0.1 uL; Basophils % (auto) 0.4 % (0.0-2.0); Hematocrit 52.2 % (41.0-53.0); Hemoglobin 18.1 g/dL (13.5-17.5); Mean Corpuscular Hemoglobin 31.1 pg (28.0-32.0); Mean Corpuscular Hgb Conc. 34.7 g/dL (32.0-36.0); Mean Corpuscular Volume 89.8 fL (80.0-100.0); Neutrophils # (auto) 13.8 uL; Neutrophils % (auto) 83.2 % (37.0-80.0); Nucleated Red Blood Cells % 0.1 %; Platelet Count (auto) 434 10^3/uL (140-450); Red Blood Cells 5.81 10^6/uL (4.5-5.90); White Blood Cell 16.5 10^3/uL (4.4-10.8)
[2019-09-11 18:51] LABS: Albumin 4.5 g/dL (3.4-5.0); Calcium 9.6 mg/dL (8.5-10.1); Magnesium 2.4 mg/dL (1.6-2.6); Potassium 3.5 mmol/L (3.5-5.1)
[2019-09-11 18:55] LABS: BUN/Creatinine Ratio 21.2; Bilirubin, Total 0.6 mg/dL (0.2-1.0)
[2019-09-12 01:13] VITALS: BP 155/109
== END 2019-09-12 01:18 | disposition still patient (30) ==
LOC: EDBD 17:20 → ER 17:23
DX: R11.2 Nausea with vomiting, unspecified (principal); F15.10 Other stimulant abuse, uncomplicated; F25.0 Schizoaffective disorder, bipolar type; N28.9 Disorder of kidney and ureter, unspecified; E86.0 Dehydration; K21.9 Gastro-esophageal reflux disease without esophagitis; F41.9 Anxiety disorder, unspecified; F32.9 Major depressive disorder, single episode, unspecified; F17.210 Nicotine dependence, cigarettes, uncomplicated; Z79.899 Other long term (current) drug therapy
CPT/HCPCS: 36415; 74176; 80053; 80307; 81001; 82150; 83690; 83735; 85025; 93005; 96361; 96374; 99284; J2550; J7030

== ENCOUNTER 2019-10-28 22:02 | Emergency (ER) | payer MEDICAID ==
[~2019-10-28] VITALS: Ht 165.1 cm; Wt 70.8 kg
[2019-10-29 01:52] LABS: Barbiturate Scree,Urine NEGATIVE (NEGATIVE); Benzodiazephine Screen, Urine NEGATIVE (NEGATIVE); Cannabinoid Screen, Urine POSITIVE (NEGATIVE)
[2019-10-29 01:59] LABS: Amphetamine Screen, Urine NEGATIVE (NEGATIVE); Cocaine Screen, Urine NEGATIVE (NEGATIVE); Opiate Scree,Urine NEGATIVE (NEGATIVE); Phencyclidine Screen, Urine NEGATIVE (NEGATIVE)
[2019-10-29 05:42] VITALS: BP 132/78
== END 2019-10-29 07:28 | disposition left against medical advice (07) ==
LOC: ER 22:06
DX: F41.9 Anxiety disorder, unspecified (principal); F20.9 Schizophrenia, unspecified; F17.210 Nicotine dependence, cigarettes, uncomplicated; F12.10 Cannabis abuse, uncomplicated; K21.9 Gastro-esophageal reflux disease without esophagitis; F32.9 Major depressive disorder, single episode, unspecified; Z59.0 Homelessness
CPT/HCPCS: 80307

== ENCOUNTER 2020-11-06 18:13 | Emergency (ER) | payer MEDICAID ==
[~2020-11-06] VITALS: Ht 165.1 cm; Wt 69.4 kg
[~2020-11-06 18:13] MED LIST changes: +MIRT-66 OR; -MIRT30TA OR; +OLAN1TAB7 PO; -OLAN5TAB30 PO
[2020-11-06 18:49] LABS: Urine WBC None Seen /hpf (0 - 3)
[2020-11-06 19:08] LABS: Urine Bacteria NONE SEEN /hpf (None Seen); Urine Blood Negative /uL (Negative); Urine Specific Gravity 1.003 (1.001-1.035)
[2020-11-06 19:15] LABS: Alcohol, Urine < 3.0 mg/dL (0-10); Amphetamine Screen, Urine NEGATIVE (NEGATIVE); Barbiturate Scree,Urine NEGATIVE (NEGATIVE); Benzodiazephine Screen, Urine NEGATIVE (NEGATIVE); Cannabinoid Screen, Urine POSITIVE (NEGATIVE); Cocaine Screen, Urine NEGATIVE (NEGATIVE); Opiate Scree,Urine NEGATIVE (NEGATIVE); Phencyclidine Screen, Urine NEGATIVE (NEGATIVE)
[2020-11-06 19:23] LABS: Basophils # (auto) 0.1 10 ^3/uL (0-0.2); Basophils % (auto) 0.9 % (0.0-2.0); Eosinophils # (auto) 0.2 10 ^3/uL (0-0.8); Hemoglobin 14.5 g/dL (13.5-17.5); Lymphocytes # (auto) 2.2 10 ^3/uL (0.4-5.4); Lymphocytes % (auto) 26.3 % (10.0-50.0); Mean Corpuscular Hemoglobin 32.9 pg (28.0-32.0); Mean Corpuscular Hgb Conc. 34.6 g/dL (32.0-36.0); Mean Corpuscular Volume 95.1 fL (80.0-100.0); Monocytes # (auto) 0.5 10 ^3/uL (0-1.3); Monocytes % (auto) 5.7 % (0.0-12.0); Neutrophils # (auto) 5.5 10 ^3/uL (1.6-8.6); Neutrophils % (auto) 65.1 % (37.0-80.0); Nucleated Red Blood Cells % 0.1 %; Platelet Count (auto) 296 10^3/uL (140-450); Red Blood Cells 4.41 10^6/uL (4.5-5.90); Red Cell Distribution Width 13.5 % (11.8-14.3); White Blood Cell 8.5 10^3/uL (4.4-10.8)
[2020-11-06 19:44] LABS: Acetaminophen < 2.0 ug/mL (10-30); Albumin 3.6 g/dL (3.4-5.0); Calcium 8.7 mg/dL (8.5-10.1); Potassium 3.6 mmol/L (3.5-5.1); Salicylate 7.1 mg/dL (2.8-20.0)
[2020-11-06 19:49] LABS: BUN/Creatinine Ratio 8.2; Bilirubin, Total 0.2 mg/dL (0.2-1.0); Total Protein 6.8 g/dL (6.4-8.2)
[2020-11-08] MEDS ORDERED: LORazepam 2MG/ML-1ML VIAL IM ONE (12:00)
[2020-11-08] MEDS ORDERED: LORazepam 2MG/ML-1ML VIAL ONE (12:00)
[2020-11-08 17:44] VITALS: BP 107/74
== END 2020-11-08 16:21 ==
LOC: ER 18:13
DX: F20.9 Schizophrenia, unspecified (principal); R45.851 Suicidal ideations; F41.9 Anxiety disorder, unspecified; F32.9 Major depressive disorder, single episode, unspecified; K21.9 Gastro-esophageal reflux disease without esophagitis; E78.00 Pure hypercholesterolemia, unspecified; F17.210 Nicotine dependence, cigarettes, uncomplicated; F12.10 Cannabis abuse, uncomplicated; Z20.822 Contact with and (suspected) exposure to COVID-19; Z87.11 Personal history of peptic ulcer disease
CPT/HCPCS: 36415; 80053; 80307; 80320; 80329; 81001; 85025; 87426; 96372; 99285; C9803; J2060; U0003

== ENCOUNTER → 2020-12-28 | Emergency (ER) | payer MEDICAID ==
[~2020-12-28] VITALS: Ht 167.6 cm; Wt 65.8 kg
[~2020-12-28] MED LIST changes: +HALOPERIDOL LACTATE 5 MG/ML INJ VIAL IM ONE; +LORazepam 2MG/ML-1ML VIAL IM ONE; +POTASSIUM EFFERVESENT TAB 25 MEQ PO ONE; +diphenhdrAMINE HCL 50 MG/1 ML VL IM ONE
[2020-12-28 11:20] LABS: Basophils # (auto) 0 10 ^3/uL (0-0.2); Basophils % (auto) 0.6 % (0.0-2.0); Eosinophils # (auto) 0.1 10 ^3/uL (0-0.8); Eosinophils % (auto) 1.2 % (0.0-7.0); Hematocrit 37.6 % (41.0-53.0); Lymphocytes # (auto) 1.7 10 ^3/uL (0.4-5.4); Lymphocytes % (auto) 19.5 % (10.0-50.0); Mean Corpuscular Hemoglobin 32.6 pg (28.0-32.0); Mean Corpuscular Hgb Conc. 34.5 g/dL (32.0-36.0); Mean Corpuscular Volume 94.5 fL (80.0-100.0); Monocytes # (auto) 0.5 10 ^3/uL (0-1.3); Monocytes % (auto) 6.2 % (0.0-12.0); Neutrophils # (auto) 6.2 10 ^3/uL (1.6-8.6); Neutrophils % (auto) 72.5 % (37.0-80.0); Nucleated Red Blood Cells % 0.1 %; Platelet Count (auto) 304 10^3/uL (140-450); Red Blood Cells 3.98 10^6/uL (4.5-5.90); Red Cell Distribution Width 13.1 % (11.8-14.3); White Blood Cell 8.5 10^3/uL (4.4-10.8)
[2020-12-28 11:41] LABS: Alcohol, Urine < 3.0 mg/dL (0-10); Amphetamine Screen, Urine NEGATIVE (NEGATIVE); Barbiturate Scree,Urine NEGATIVE (NEGATIVE); Benzodiazephine Screen, Urine NEGATIVE (NEGATIVE); Cannabinoid Screen, Urine POSITIVE (NEGATIVE); Cocaine Screen, Urine NEGATIVE (NEGATIVE); Opiate Scree,Urine NEGATIVE (NEGATIVE); Phencyclidine Screen, Urine NEGATIVE (NEGATIVE)
[2020-12-28 11:41] LABS: Albumin 3.6 g/dL (3.4-5.0); Anion Gap 8 (5-15); Blood Alcohol < 3.0 mg/dL (0-5); Calcium 8.1 mg/dL (8.5-10.1); Carbon Dioxide 25 mmol/L (21-32); Chloride 108 mmol/L (98-107); Glucose 132 mg/dL (74-106); Magnesium 2.2 mg/dL (1.6-2.6); Potassium 3.4 mmol/L (3.5-5.1); Sodium 141 mmol/L (136-145)
[2020-12-28 11:43] LABS: Salicylate 7.1 mg/dL (2.8-20.0)
[2020-12-28 11:45] LABS: Alanine Aminotransferase 41 U/L (16-61); Alkaline Phosphatase 56 U/L (45-117); Aspartate Aminotransferase 41 U/L (15-37); BUN/Creatinine Ratio 10.4; Bilirubin, Total 0.5 mg/dL (0.2-1.0); Blood Urea Nitrogen 10 mg/dL (7-18); GFR African American 110 mL/min; GFR Non-African American 91 mL/min; Total Protein 6.9 g/dL (6.4-8.2)
[2020-12-28 11:48] LABS: Urine Bacteria NONE SEEN /hpf (None Seen); Urine Blood Negative /uL (Negative); Urine Specific Gravity 1.008 (1.001-1.035); Urine WBC 1 /hpf (0 - 3)
[2020-12-28 12:17] LABS: Acetaminophen < 2.0 ug/mL (10-30)
[2020-12-28 16:37] VITALS: BP 109/73
== END | disposition home or self-care (01) ==
LOC: EDUNIT# 10:43 → EDBD 10:47 → ER 10:47
DX: R45.851 Suicidal ideations (principal); F41.9 Anxiety disorder, unspecified; F17.210 Nicotine dependence, cigarettes, uncomplicated; F12.10 Cannabis abuse, uncomplicated; K21.9 Gastro-esophageal reflux disease without esophagitis; E78.5 Hyperlipidemia, unspecified
CPT/HCPCS: 36415; 80053; 80307; 80320; 80329; 81001; 83735; 85025; 96372; 99285; J1200; J1630; J2060

== ENCOUNTER 2022-08-22 07:45 | Emergency (ER) | payer MEDICAID ==
[~2022-08-22] VITALS: Ht 165.1 cm; Wt 75.0 kg
[~2022-08-22 07:45] MED LIST changes: -HALOPERIDOL LACTATE 5 MG/ML INJ VIAL IM ONE; -LORazepam 2MG/ML-1ML VIAL IM ONE; -POTASSIUM EFFERVESENT TAB 25 MEQ PO ONE; -diphenhdrAMINE HCL 50 MG/1 ML VL IM ONE
[2022-08-22 09:41] VITALS: BP 122/81
[2022-08-22] MEDS ORDERED: DIVA500T2 PO (10:10)
[2022-08-22] MEDS ORDERED: GABA300C10 PO (10:10)
[2022-08-22] MEDS ORDERED: ESCI10TA PO ×2 (10:12→10:15)
== END 2022-08-22 10:19 | disposition home or self-care (01) ==
LOC: EDBD 07:45 → EDUNIT# 07:45 → ER 07:45
DX: F20.9 Schizophrenia, unspecified (principal); K21.9 Gastro-esophageal reflux disease without esophagitis; E78.5 Hyperlipidemia, unspecified; F17.210 Nicotine dependence, cigarettes, uncomplicated; Z79.899 Other long term (current) drug therapy; Z76.0 Encounter for issue of repeat prescription

== ENCOUNTER 2022-09-09 09:42 | Emergency (ER) | payer MEDICAID ==
[~2022-09-09] VITALS: Ht 165.1 cm; Wt 76.7 kg
[~2022-09-09 09:42] MED LIST changes: +DIVA500T2 PO; +ESCI10TA PO; +GABA300C10 PO
[2022-09-09 13:59] VITALS: BP 102/65
[2022-09-09] MEDS ORDERED: GABA300C10 PO (14:08)
[2022-09-09] MEDS ORDERED: ESCI10TA PO (14:08)
[2022-09-09] MEDS ORDERED: DIVA1TAB58 PO (14:08)
[2022-09-09] MEDS ORDERED: ALPR1TAB2 PO (14:08)
== END 2022-09-09 14:09 | disposition home or self-care (01) ==
LOC: ER 09:42
DX: K21.9 Gastro-esophageal reflux disease without esophagitis (principal); E78.5 Hyperlipidemia, unspecified; F17.210 Nicotine dependence, cigarettes, uncomplicated; F12.10 Cannabis abuse, uncomplicated; Z76.0 Encounter for issue of repeat prescription

== ENCOUNTER 2022-10-09 12:50 | Emergency (ER) | payer MEDICAID ==
[~2022-10-09] VITALS: Ht 165.1 cm; Wt 69.5 kg
[~2022-10-09 12:50] MED LIST changes: +ALPR1TAB2 PO; +DIVA1TAB58 PO
[2022-10-09 14:05] VITALS: BP 133/92
[2022-10-09] MEDS ORDERED: ESCI10TA PO (14:21)
[2022-10-09] MEDS ORDERED: GABA300C10 PO (14:21)
== END 2022-10-09 14:31 | disposition home or self-care (01) ==
LOC: ER 12:50
DX: F31.9 Bipolar disorder, unspecified (principal); F41.9 Anxiety disorder, unspecified; K21.9 Gastro-esophageal reflux disease without esophagitis; F17.210 Nicotine dependence, cigarettes, uncomplicated; F12.10 Cannabis abuse, uncomplicated; Z76.0 Encounter for issue of repeat prescription

== ENCOUNTER 2023-01-15 19:58 | Emergency (ER) | payer MEDICAID | END 2023-01-15 22:31 | disposition left against medical advice (07) | LOC: ER 19:58 | DX: F41.9 Anxiety disorder, unspecified (principal); Z53.21 Procedure and treatment not carried out due to patient leaving prior to being seen by health care provider ==

== ENCOUNTER 2023-01-20 06:43 | Emergency (ER) | payer MEDICAID ==
[~2023-01-20] VITALS: Ht 165.1 cm; Wt 78.2 kg
[2023-01-20 07:39] VITALS: BP 146/77
[2023-01-21] MEDS ORDERED: LORA1TAB23 PO (14:18)
[2023-01-21] MEDS ORDERED: GABA300C10 PO ×3 (14:18→14:20)
== END 2023-01-20 07:37 | disposition home or self-care (01) ==
LOC: ER 06:43
DX: F41.9 Anxiety disorder, unspecified (principal); F32.9 Major depressive disorder, single episode, unspecified; K21.9 Gastro-esophageal reflux disease without esophagitis; E78.5 Hyperlipidemia, unspecified; F17.210 Nicotine dependence, cigarettes, uncomplicated; Z76.0 Encounter for issue of repeat prescription

== ENCOUNTER 2023-01-20 15:41 | Emergency (ER) | payer MEDICAID ==
[~2023-01-20] VITALS: Ht 172.7 cm; Wt 72.7 kg
[2023-01-20 15:56] VITALS: BP 135/88
[2023-01-21] MEDS ORDERED: GABA300C10 PO ×3 (14:18→14:20)
[2023-01-21] MEDS ORDERED: LORA1TAB23 PO (14:18)
== END 2023-01-21 00:18 | disposition left against medical advice (07) ==
LOC: EDBD 15:41 → ER 15:41
DX: R11.2 Nausea with vomiting, unspecified (principal); Z53.21 Procedure and treatment not carried out due to patient leaving prior to being seen by health care provider

== ENCOUNTER 2023-01-21 12:48 | Emergency (ER) | payer MEDICAID ==
[~2023-01-21] VITALS: Ht 165.1 cm; Wt 73.2 kg
[2023-01-21 14:07] VITALS: BP 118/77
[2023-01-21] MEDS ORDERED: GABA300C10 PO ×3 (14:18→14:20)
[2023-01-21] MEDS ORDERED: LORA1TAB23 PO (14:18)
== END 2023-01-21 14:31 | disposition home or self-care (01) ==
LOC: ER 12:48
DX: F41.9 Anxiety disorder, unspecified (principal); F32.9 Major depressive disorder, single episode, unspecified; E78.5 Hyperlipidemia, unspecified; K21.9 Gastro-esophageal reflux disease without esophagitis; F17.210 Nicotine dependence, cigarettes, uncomplicated; F12.10 Cannabis abuse, uncomplicated; Z76.0 Encounter for issue of repeat prescription; Z88.6 Allergy status to analgesic agent

== ENCOUNTER 2023-01-26 19:46 | Emergency (ER) | payer MEDICAID ==
[~2023-01-26] VITALS: Ht 165.1 cm; Wt 78.0 kg
[2023-01-26 19:46] VITALS: BP 116/69
[~2023-01-26 19:46] MED LIST changes: +LORA1TAB23 PO
== END 2023-01-26 23:03 | disposition left against medical advice (07) ==
LOC: ER 19:46
DX: F41.9 Anxiety disorder, unspecified (principal); Z53.21 Procedure and treatment not carried out due to patient leaving prior to being seen by health care provider

== ENCOUNTER 2023-01-28 12:43 | Emergency (ER) | payer MEDICAID ==
[2023-01-28] MEDS ORDERED: FAMOTIDINE 20 MG TAB PO ONE (15:45)
[2023-01-28] MEDS ORDERED: ONDANSETRON ODT 4 MG TAB PO ONE (15:45)
[2023-01-28] MEDS ORDERED: MAALOX PLUS or MAALOX 30 ML PO ONE (15:45)
[2023-01-28] MEDS ORDERED: ONDA-144 PO (15:55)
== END 2023-01-28 16:28 | disposition home or self-care (01) ==
LOC: ER 12:43 → EDBD 12:43 → ER 16:24
DX: R11.2 Nausea with vomiting, unspecified (principal); F41.9 Anxiety disorder, unspecified; F32.9 Major depressive disorder, single episode, unspecified; E78.5 Hyperlipidemia, unspecified; K21.9 Gastro-esophageal reflux disease without esophagitis; F17.210 Nicotine dependence, cigarettes, uncomplicated; F12.10 Cannabis abuse, uncomplicated; F14.10 Cocaine abuse, uncomplicated
CPT/HCPCS: 99284; Q0162

== ENCOUNTER 2023-04-13 09:30 | Emergency (ER) | payer MEDICAID ==
[~2023-04-13] VITALS: Ht 165.1 cm; Wt 58.0 kg
[~2023-04-13 09:30] MED LIST changes: -DIVA500T2 PO; +DIVA500T3 PO; +GABA-1250 PO; -GABA300C10 PO; +LORA-1123 PO; -LORA1TAB23 PO; -MIRT-66 OR; +MIRT-94 OR; +ONDA-144 PO
[2023-04-13 09:51] LABS: Urine WBC None Seen /hpf (0 - 3)
[2023-04-13 10:10] LABS: Urine Bacteria NONE SEEN /hpf (None Seen); Urine Blood Negative /uL (Negative); Urine Specific Gravity 1.023 (1.001-1.035)
[2023-04-13 10:43] LABS: Alcohol, Urine < 3.0 mg/dL (0-10); Amphetamine Screen, Urine POSITIVE (NEGATIVE); Barbiturate Scree,Urine NEGATIVE (NEGATIVE); Benzodiazephine Screen, Urine NEGATIVE (NEGATIVE)
[2023-04-13 10:51] LABS: Cannabinoid Screen, Urine POSITIVE (NEGATIVE); Cocaine Screen, Urine NEGATIVE (NEGATIVE); Opiate Scree,Urine NEGATIVE (NEGATIVE); Phencyclidine Screen, Urine NEGATIVE (NEGATIVE)
[2023-04-14] MEDS: QUEtiapine FUMARATE 25 MG TAB PO SCH ×2 (00:16→23:46)
[2023-04-14] MEDS ORDERED: SERTRALINE HCL 50 MG TAB PO SCH (10:00)
[2023-04-15 05:40] VITALS: BP 113/64
== END 2023-04-15 13:56 | disposition short-term general hospital (02) ==
LOC: ER 09:30
DX: R45.851 Suicidal ideations (principal); F32.9 Major depressive disorder, single episode, unspecified; F41.9 Anxiety disorder, unspecified; F20.9 Schizophrenia, unspecified; K21.9 Gastro-esophageal reflux disease without esophagitis; E78.5 Hyperlipidemia, unspecified; F17.210 Nicotine dependence, cigarettes, uncomplicated; F12.10 Cannabis abuse, uncomplicated; F14.10 Cocaine abuse, uncomplicated
CPT/HCPCS: 36415; 80307; 80320; 81001

== ENCOUNTER 2023-05-17 08:41 | Emergency (ER) | payer MEDICAID ==
[~2023-05-17] VITALS: Ht 165.1 cm; Wt 67.7 kg
[2023-05-17 09:10] VITALS: BP 114/68; PULSE 82; RESP 20; TEMP 98.2; O2SAT 98
[2023-05-17] MEDS ORDERED: BENZOCAINE (DENTAL) 20 % SPRAY 60ML MT ONE (09:30)
[2023-05-17] MEDS ORDERED: cefTRIAXone W LIDOCAINE 1 GM IM IM ONE (09:30)
[2023-05-17] MEDS ORDERED: cefTRIAXone SOD 1,000 MG VL IM ONE (09:45)
[2023-05-17] MEDS ORDERED: AMOX500T3 PO (09:59)
== END 2023-05-17 10:04 | disposition home or self-care (01) ==
LOC: ER 08:41
DX: S03.2XXA Dislocation of tooth, initial encounter (principal); K21.9 Gastro-esophageal reflux disease without esophagitis; E78.5 Hyperlipidemia, unspecified; F17.210 Nicotine dependence, cigarettes, uncomplicated; F12.10 Cannabis abuse, uncomplicated; F14.10 Cocaine abuse, uncomplicated; R07.89 Other chest pain; X58.XXXA Exposure to other specified factors, initial encounter; Y93.89 Activity, other specified; Y92.89 Other specified places as the place of occurrence of the external cause; Y99.8 Other external cause status
CPT/HCPCS: J0696

== ENCOUNTER 2023-08-12 09:28 | Emergency (ER) | payer MEDICAID ==
[~2023-08-12] VITALS: Ht 165.1 cm; Wt 72.0 kg
[~2023-08-12 09:28] MED LIST changes: +AMOX500T3 PO
[2023-08-12 09:54] VITALS: BP 149/98; PULSE 95; RESP 18; TEMP 97.5; O2SAT 99
[2023-08-12] MEDS ORDERED: SULFAMETHOX W/TRIMETH(800/160MG) DS TAB PO ONE (10:15)
[2023-08-12] MEDS ORDERED: TETANUS-DIPTH-ACEL PERTUSSIS 0.5ML SYR Tdap IM ONE (10:15)
[2023-08-12 10:24] LABS: Basophils # (auto) 0 10 ^3/uL (0-0.2); Basophils % (auto) 0.3 % (0.0-2.0); Eosinophils # (auto) 0.1 10 ^3/uL (0-0.8); Hematocrit 40.9 % (41.0-53.0); Hemoglobin 13.9 g/dL (13.5-17.5); Lymphocytes # (auto) 1.5 10 ^3/uL (0.4-5.4); Lymphocytes % (auto) 15.8 % (10.0-50.0); Mean Corpuscular Hemoglobin 31.1 pg (28.0-32.0); Mean Corpuscular Volume 91.4 fL (80.0-100.0); Monocytes % (auto) 10.1 % (0.0-12.0); Neutrophils # (auto) 6.9 10 ^3/uL (1.6-8.6); Neutrophils % (auto) 72.8 % (37.0-80.0); Red Blood Cells 4.48 10^6/uL (4.5-5.90); Red Cell Distribution Width 13.7 % (11.8-14.3); White Blood Cell 9.4 10^3/uL (4.4-10.8)
[2023-08-12 10:45] LABS: Alanine Aminotransferase 15 U/L (7-40); Albumin 4.5 g/dL (3.2-4.8); Alkaline Phosphatase 62 U/L (46-116); Anion Gap 5 (5-15); Aspartate Aminotransferase 16 U/L (13-40); BUN/Creatinine Ratio 16.3 (10.0-20.0); Bilirubin, Total 0.2 mg/dL (0.2-1.0); Blood Urea Nitrogen 14 mg/dL (9-23); Calcium 9.4 mg/dL (8.7-10.4); Carbon Dioxide 27 mmol/L (20-30); Chloride 107 mmol/L (98-107); Glucose 95 mg/dL (74-106); Potassium 3.8 mmol/L (3.5-5.1); Sodium 139 mmol/L (136-145); Total Protein 7.3 g/dL (5.7-8.2)
[2023-08-12] MEDS ORDERED: CEPH500C PO (10:57)
[2023-08-12] MEDS ORDERED: ACET500T58 PO (10:57)
== END 2023-08-12 11:08 | disposition home or self-care (01) ==
LOC: ER 09:28
DX: L03.116 Cellulitis of left lower limb (principal); L03.115 Cellulitis of right lower limb; F41.9 Anxiety disorder, unspecified; F32.9 Major depressive disorder, single episode, unspecified; K21.9 Gastro-esophageal reflux disease without esophagitis; E78.5 Hyperlipidemia, unspecified; F20.9 Schizophrenia, unspecified; F17.210 Nicotine dependence, cigarettes, uncomplicated; F15.90 Other stimulant use, unspecified, uncomplicated; Z98.890 Other specified postprocedural states; Z79.899 Other long term (current) drug therapy
CPT/HCPCS: 36415; 80053; 83605; 85025; 90471; 90715